=== PATIENT | male | born 1985 | race Caucasian/White ===

== ENCOUNTER → 2017-10-08 17:36 | Outpatient (CLI) | payer BC, SELFPAY ==
--- NOTE | 2017-10-08 17:57 | CT_ITS ---
STUDY: CT BRAIN WITH AND WITHOUT CONTRAST REASON FOR EXAM: Male, 32 years old. Post traumatic headaches RADIATION DOSAGE (If Supplied By Facility): CTDIvol = ( 44.99 ) mGy, DLP = ( 1614.72 ) mGycm TECHNIQUE: Transaxial CT imaging of the brain was performed pre and post contrast administration. The examination was performed with intravenous administration of 50 ml of Isovue 370 contrast material. Individualized dose optimization techniques were used for this CT. COMPARISON: None. FINDINGS: Normal soft tissue structures. Normal calvarium. Normal size ventricles and extra-axial spaces for the patient's age. Normal white matter tracts of the cerebral hemispheres. Normal basal ganglia and thalami. Normal brainstem. Normal cerebellum. There is no intracranial hemorrhage. There are no findings of an acute ischemic infarction. Normal visualized paranasal sinuses. CT/Brain/Head W/WO Contrast IMPRESSION: Normal unenhanced and enhanced CT scan of the brain. No acute findings in the brain. Electronically Signed: Flo Calderon, at 3:29 EST Tel , Service support ,
== END ==
DX: G44.321 Chronic post-traumatic headache, intractable (principal)
CPT/HCPCS: 70470; Q9967